=== PATIENT | female | born 1970 | race Two or more races ===

== ENCOUNTER 2020-10-28 14:15 | Inpatient (IN) | payer MEDICAID ==
[~2020-10-28] VITALS: Ht 160 cm; Wt 91.6 kg
[2020-10-28] MEDS ORDERED: CEFTRIAXONE 1 G PREMIX 50 ML IV ONE (15:45)
[2020-10-28 16:38] LABS: BASOPHILS % 0.5 % (0.0-2.0); EOSINOPHILS % 0.2 % (0.0-5.0); HEMATOCRIT. 36.3 % (36.0-48.0); HEMOGLOBIN. 11.8 g/dL (12.0-16.0); LYMPHOCYTES % 23.3 % (20.0-50.0); MEAN CORPUSCULAR HEMOGLOBIN 25.2 pg (28.0-32.0); MEAN CORPUSCULAR VOLUME 77.8 fL (81.0-99.0); MEAN PLATELET VOLUME 9.8 fl (7.4-10.4); MONOCYTES % 3.9 % (2.0-8.0); NEUTROPHILS % 72.1 % (40.0-76.0); PLATELET 192 x1000/uL (130-400); RED BLOOD CELL COUNT 4.67 mill/uL (4.2-5.4); RED CELL DISTRIBUTION WIDTH 21.2 % (11.6-14.6)
[2020-10-28 16:43] LABS: CHLORIDE 98 mEq/L (98-107)
[2020-10-28 18:21] LABS: CLARITY URINE CLOUDY (CLEAR); COLOR URINE YELLOW (YELLOW); KETONES URINE NEGATIVE (NEGATIVE); LEUKOCYTE ESTERASE URINE 1+ (NEGATIVE); NITRITE URINE NEGATIVE (NEGATIVE); OCCULT BLOOD URINE 2+ (NEGATIVE); PROTEIN URINE 2+ (NEGATIVE); SPECIFIC GRAVITY URINE 1.023 (1.005-1.030)
[2020-10-28] MEDS ORDERED: MAGNESIUM/ALUMINUM HYDROXIDE/SIMETHICONE 30ML UDC PO PRN (20:15)
[2020-10-28] MEDS ORDERED: DOCUSATE SODIUM 100MG CAPSULE PO PRN (20:15)
[2020-10-28] MEDS ORDERED: ALBUTEROL 6.7GM HFA INHALER ORI PRN (20:15)
[2020-10-28] MEDS ORDERED: NITROGLYCERIN 0.4MG TABLET SL SL PRN (20:15)
[2020-10-28] MEDS ORDERED: CLONIDINE 0.1MG TABLET PO PRN (20:15)
[2020-10-28] MEDS ORDERED: ZOLPIDEM TARTRATE 5MG TABLET PO PRN (20:15)
[2020-10-28 20:39] LABS: TOTAL IRON BINDING CAPACITY 324 ug/dL (250-450)
[2020-10-28] MEDS ORDERED: DEXAMETHASONE 4MG/ML 1ML VIAL IV ONE (20:45)
[2020-10-28 20:48] LABS: FOLIC ACID (FOLATE) SERUM >20 ng/mL ng/mL (>5.38)
[2020-10-28 20:59] LABS: VITAMIN B12 SERUM 643 pg/mL (211-911)
[2020-10-28] MEDS: GUAIFENESIN/DM 600MG/30MG ER TAB 12HR PO SCH (21:00)
[2020-10-28] MEDS: ASCORBIC ACID 500 MG TABLET PO SCH (21:00)
[2020-10-28] MEDS: ENOXAPARIN 40MG/0.4ML SYR SUBCUT SCH (21:07)
[2020-10-28] MEDS: BLOOD SUGAR DIAGNOSTIC STRIP TEST SCH (21:07)
[2020-10-28] MEDS: FAMOTIDINE 20MG TABLET PO SCH (21:08)
[2020-10-28] MEDS: INSULIN LISPRO 100 UNITS/ML SUBCUT SCH (21:08)
[2020-10-28] MEDS ORDERED: AZITHROMYCIN 500 MG in DEXT 5% WATER 250 ML IV SCH (21:30)
[2020-10-29 00:49] LABS: CREATINE KINASE 42 IU/L (26-192)
[2020-10-29 00:50] LABS: CREATINE KINASE MB FRACTION < 1.0 ng/mL (0.5-3.6)
[2020-10-29 05:40] LABS: BASOPHILS % 0.3 % (0.0-2.0); HEMOGLOBIN. 11.2 g/dL (12.0-16.0); LYMPHOCYTES % 16.9 % (20.0-50.0); MEAN CORPUSCULAR HEMOGLOBIN 24.9 pg (28.0-32.0); MEAN CORPUSCULAR VOLUME 77.9 fL (81.0-99.0); MEAN PLATELET VOLUME 9.7 fl (7.4-10.4); MONOCYTES % 2.4 % (2.0-8.0); NEUTROPHILS % 80.4 % (40.0-76.0); PLATELET 196 x1000/uL (130-400); RED BLOOD CELL COUNT 4.49 mill/uL (4.2-5.4); RED CELL DISTRIBUTION WIDTH 21.1 % (11.6-14.6)
[2020-10-29 05:53] LABS: CHLORIDE 102 mEq/L (98-107)
[2020-10-29 05:59] LABS: PHOSPHORUS 3.3 mg/dL (2.5-4.9)
[2020-10-29 06:02] LABS: CREATINE KINASE 33 IU/L (26-192)
[2020-10-29 06:05] LABS: CREATINE KINASE MB FRACTION < 1.0 ng/mL (0.5-3.6)
[2020-10-29] MEDS: BLOOD SUGAR DIAGNOSTIC STRIP TEST SCH ×4 (06:48→21:31)
[2020-10-29] MEDS: INSULIN LISPRO 100 UNITS/ML SUBCUT SCH ×4 (07:04→21:47)
[2020-10-29] MEDS ORDERED: DEXAMETHASONE 10 MG/ML VIAL IV SCH (09:45)
[2020-10-29] MEDS ORDERED: DEXAMETHASONE 4MG/ML 1ML VIAL IV NR (11:22)
[2020-10-29] MEDS: ASCORBIC ACID 500 MG TABLET PO SCH ×2 (11:34→21:43)
[2020-10-29] MEDS: GUAIFENESIN/DM 600MG/30MG ER TAB 12HR PO SCH ×2 (11:34→21:43)
[2020-10-29] MEDS: FAMOTIDINE 20MG TABLET PO SCH ×2 (11:34→21:43)
[2020-10-29] MEDS: ASPIRIN 325MG EC TABLET PO SCH (11:35)
[2020-10-29] MEDS: ZINC SULFATE 220 MG ( 50 ) CAPSULE PO SCH (11:35)
[2020-10-29 12:00] VITALS: BP 113/59
[2020-10-29] MEDS: INSULIN GLARGINE UD 100 UNITS/ML SYR SUBCUT SCH ×2 (13:39→21:45)
[2020-10-29 14:00] VITALS: BP 135/113
[2020-10-29] MEDS ORDERED: CEFTRIAXONE 1 G PREMIX 50 ML IV SCH (17:00)
[2020-10-29] MEDS ORDERED: PNEUMOCOCCAL 23-VAL P-SAC VAC 0.5 ML IM ONE (18:30)
[2020-10-29] MEDS ORDERED: LISI10TA5 MT (18:31)
[2020-10-29 20:00] VITALS: BP 124/58
[2020-10-29] MEDS: CEFTRIAXONE 1,000 MG in DEXTROSE 5% WATER 50 ML IV SCH (21:43)
[2020-10-29] MEDS: ENOXAPARIN 40MG/0.4ML SYR SUBCUT SCH (21:44)
[2020-10-29] MEDS: ACETAMINOPHEN 325MG TABLET PO PRN (22:31)
[2020-10-29] MEDS ORDERED: AZITHROMYCIN 500 MG in DEXT 5% WATER 250 ML IV NR (23:45)
[2020-10-30] VITALS: BP 128/58
[2020-10-30] MEDS: ALBUTEROL 6.7GM HFA INHALER ORI SCH ×5 (01:01→22:05)
[2020-10-30 04:00] VITALS: BP 124/58
[2020-10-30] MEDS: BLOOD SUGAR DIAGNOSTIC STRIP TEST SCH ×4 (07:30→21:00)
[2020-10-30 08:00] VITALS: BP 110/45
[2020-10-30] MEDS: ASCORBIC ACID 500 MG TABLET PO SCH ×2 (08:33→22:01)
[2020-10-30] MEDS: FAMOTIDINE 20MG TABLET PO SCH ×2 (08:33→22:00)
[2020-10-30] MEDS: GUAIFENESIN/DM 600MG/30MG ER TAB 12HR PO SCH ×2 (08:33→22:01)
[2020-10-30] MEDS: ZINC SULFATE 220 MG ( 50 ) CAPSULE PO SCH (08:33)
[2020-10-30] MEDS: ACETAMINOPHEN 325MG TABLET PO PRN ×3 (08:33→18:40)
[2020-10-30] MEDS: DEXAMETHASONE 10 MG/ML VIAL IV SCH (08:33)
[2020-10-30] MEDS: ASPIRIN 325MG EC TABLET PO SCH (08:34)
[2020-10-30] MEDS: INSULIN LISPRO 100 UNITS/ML SUBCUT SCH ×4 (08:35→22:03)
[2020-10-30] MEDS: INSULIN GLARGINE UD 100 UNITS/ML SYR SUBCUT SCH ×2 (11:44→22:04)
[2020-10-30 12:00] VITALS: BP 116/59
[2020-10-30 16:00] VITALS: BP 139/67
[2020-10-30] MEDS ORDERED: AZITHROMYCIN 500 MG in DEXT 5% WATER 250 ML IV SCH (18:00)
[2020-10-30 20:00] VITALS: BP 120/69
[2020-10-30] MEDS: CEFTRIAXONE 1,000 MG in DEXTROSE 5% WATER 50 ML IV SCH (22:00)
[2020-10-30] MEDS: ENOXAPARIN 40MG/0.4ML SYR SUBCUT SCH (22:01)
[2020-10-31 00:33] VITALS: BP 130/80
[2020-10-31] MEDS: ACETAMINOPHEN 325MG TABLET PO PRN (01:26)
[2020-10-31] MEDS: ONDANSETRON HCL 4MG/2ML INJ IV PRN ×2 (01:37→11:07)
[2020-10-31 04:00] VITALS: BP 122/56
[2020-10-31] MEDS: ALBUTEROL 6.7GM HFA INHALER ORI SCH ×4 (05:53→21:33)
[2020-10-31] MEDS: KETOROLAC 15MG/ML VIAL IV PRN ×3 (06:46→21:37)
[2020-10-31] MEDS: BLOOD SUGAR DIAGNOSTIC STRIP TEST SCH ×4 (07:01→21:38)
[2020-10-31 08:00] VITALS: BP_SYST 129
[2020-10-31] MEDS: ASCORBIC ACID 500 MG TABLET PO SCH ×2 (08:22→21:36)
[2020-10-31] MEDS: GUAIFENESIN/DM 600MG/30MG ER TAB 12HR PO SCH ×2 (08:22→22:15)
[2020-10-31] MEDS: ASPIRIN 325MG EC TABLET PO SCH (08:22)
[2020-10-31] MEDS: DEXAMETHASONE 10 MG/ML VIAL IV SCH (08:23)
[2020-10-31] MEDS: FAMOTIDINE 20MG TABLET PO SCH ×2 (08:23→21:36)
[2020-10-31] MEDS: ZINC SULFATE 220 MG ( 50 ) CAPSULE PO SCH (08:23)
[2020-10-31] MEDS: INSULIN LISPRO 100 UNITS/ML SUBCUT SCH ×4 (08:24→21:35)
[2020-10-31] MEDS: INSULIN GLARGINE UD 100 UNITS/ML SYR SUBCUT SCH ×2 (10:46→21:35)
[2020-10-31 12:00] VITALS: BP 126/55
[2020-10-31] MEDS: AZITHROMYCIN 500 MG TABLET PO SCH (18:23)
[2020-10-31 20:00] VITALS: BP 149/80
[2020-10-31] MEDS: CEFTRIAXONE 1,000 MG in DEXTROSE 5% WATER 50 ML IV SCH (21:33)
[2020-10-31] MEDS: ENOXAPARIN 40MG/0.4ML SYR SUBCUT SCH (21:34)
[2020-11-01 00:25] VITALS: BP 128/60
[2020-11-01] MEDS: ALBUTEROL 6.7GM HFA INHALER ORI SCH ×4 (04:02→20:31)
[2020-11-01] MEDS: ACETAMINOPHEN 325MG TABLET PO PRN (04:02)
[2020-11-01 04:08] VITALS: BP 111/42
[2020-11-01] MEDS: BLOOD SUGAR DIAGNOSTIC STRIP TEST SCH ×4 (06:03→21:00)
[2020-11-01] MEDS: INSULIN LISPRO 100 UNITS/ML SUBCUT SCH ×4 (06:25→22:56)
[2020-11-01 08:00] VITALS: BP 131/62
[2020-11-01] MEDS: ASPIRIN 325MG EC TABLET PO SCH (09:18)
[2020-11-01] MEDS: ZINC SULFATE 220 MG ( 50 ) CAPSULE PO SCH (09:18)
[2020-11-01] MEDS: ASCORBIC ACID 500 MG TABLET PO SCH ×2 (09:19→20:30)
[2020-11-01] MEDS: GUAIFENESIN/DM 600MG/30MG ER TAB 12HR PO SCH ×2 (09:20→20:30)
[2020-11-01] MEDS: FAMOTIDINE 20MG TABLET PO SCH ×2 (09:20→20:30)
[2020-11-01] MEDS: DEXAMETHASONE 10 MG/ML VIAL IV SCH (09:21)
[2020-11-01] MEDS: KETOROLAC 15MG/ML VIAL IV PRN (09:23)
[2020-11-01] MEDS: INSULIN GLARGINE UD 100 UNITS/ML SYR SUBCUT SCH ×2 (09:50→22:57)
[2020-11-01 12:00] VITALS: BP 114/48
[2020-11-01 16:00] VITALS: BP 118/67
[2020-11-01] MEDS: AZITHROMYCIN 500 MG TABLET PO SCH (17:40)
[2020-11-01 20:00] VITALS: BP 148/64
[2020-11-01] MEDS: CEFTRIAXONE 1,000 MG in DEXTROSE 5% WATER 50 ML IV SCH (20:30)
[2020-11-01] MEDS: ENOXAPARIN 40MG/0.4ML SYR SUBCUT SCH (20:30)
[2020-11-02] VITALS: BP 149/74
[2020-11-02 04:00] VITALS: BP 133/58
[2020-11-02] MEDS: ALBUTEROL 6.7GM HFA INHALER ORI SCH ×4 (04:47→20:57)
[2020-11-02] MEDS: ACETAMINOPHEN 325MG TABLET PO PRN ×4 (04:49→22:59)
[2020-11-02] MEDS: INSULIN LISPRO 100 UNITS/ML SUBCUT SCH ×4 (07:40→21:00)
[2020-11-02] MEDS: BLOOD SUGAR DIAGNOSTIC STRIP TEST SCH ×4 (07:48→20:58)
[2020-11-02 08:00] VITALS: BP 131/67
[2020-11-02] MEDS: KETOROLAC 15MG/ML VIAL IV PRN ×3 (08:24→23:56)
[2020-11-02] MEDS: DEXAMETHASONE 10 MG/ML VIAL IV SCH (08:26)
[2020-11-02] MEDS: ASPIRIN 325MG EC TABLET PO SCH (08:26)
[2020-11-02] MEDS: ZINC SULFATE 220 MG ( 50 ) CAPSULE PO SCH (08:26)
[2020-11-02] MEDS: GUAIFENESIN/DM 600MG/30MG ER TAB 12HR PO SCH ×2 (08:27→20:57)
[2020-11-02] MEDS: ASCORBIC ACID 500 MG TABLET PO SCH ×2 (08:28→20:57)
[2020-11-02] MEDS: FAMOTIDINE 20MG TABLET PO SCH ×2 (08:28→20:58)
[2020-11-02] MEDS: INSULIN GLARGINE UD 100 UNITS/ML SYR SUBCUT SCH ×2 (09:54→21:59)
[2020-11-02 12:00] VITALS: BP 154/76
[2020-11-02 16:00] VITALS: BP 133/77
[2020-11-02 20:00] VITALS: BP 135/75
[2020-11-02] MEDS: CEFTRIAXONE 1,000 MG in DEXTROSE 5% WATER 50 ML IV SCH (20:35)
[2020-11-02] MEDS: ENOXAPARIN 40MG/0.4ML SYR SUBCUT SCH (20:58)
[2020-11-03] VITALS: BP 129/70
[2020-11-03] MEDS: ACETAMINOPHEN 325MG TABLET PO PRN ×3 (03:14→14:53)
[2020-11-03] MEDS: ALBUTEROL 6.7GM HFA INHALER ORI SCH ×3 (03:16→14:52)
[2020-11-03 04:00] VITALS: BP 133/77
[2020-11-03] MEDS: KETOROLAC 15MG/ML VIAL IV PRN ×2 (06:06→15:50)
[2020-11-03] MEDS: BLOOD SUGAR DIAGNOSTIC STRIP TEST SCH ×4 (06:25→21:00)
[2020-11-03] MEDS: INSULIN LISPRO 100 UNITS/ML SUBCUT SCH ×4 (07:40→21:00)
[2020-11-03] MEDS: FAMOTIDINE 20MG TABLET PO SCH ×2 (09:02→22:56)
[2020-11-03] MEDS: DEXAMETHASONE 10 MG/ML VIAL IV SCH (09:03)
[2020-11-03] MEDS: GUAIFENESIN/DM 600MG/30MG ER TAB 12HR PO SCH ×2 (09:03→22:56)
[2020-11-03] MEDS: ASCORBIC ACID 500 MG TABLET PO SCH ×2 (09:03→22:56)
[2020-11-03] MEDS: ZINC SULFATE 220 MG ( 50 ) CAPSULE PO SCH (09:03)
[2020-11-03] MEDS: INSULIN GLARGINE UD 100 UNITS/ML SYR SUBCUT SCH ×2 (10:48→22:50)
[2020-11-03] MEDS ORDERED: LORAZEPAM 2MG/ML CPJ IV NR (11:00)
[2020-11-03] MEDS ORDERED: LORAZEPAM 2MG/ML CPJ IV PRN (11:00)
[2020-11-03] MEDS: ASPIRIN 325MG EC TABLET PO SCH (11:46)
[2020-11-03] MEDS ORDERED: FUROSEMIDE 40MG/4ML VIAL IVP NR (17:30)
[2020-11-03] MEDS: DILTIAZEM HCL 30MG TABLET PO SCH ×2 (18:00→23:19)
[2020-11-03 20:00] VITALS: BP 135/75
[2020-11-03] MEDS: CEFTRIAXONE 1,000 MG in DEXTROSE 5% WATER 50 ML IV SCH (22:48)
[2020-11-03] MEDS: ENOXAPARIN 40MG/0.4ML SYR SUBCUT SCH (22:55)
[2020-11-04] VITALS: BP 144/70
[2020-11-04] MEDS: ACETAMINOPHEN 325MG TABLET PO PRN ×4 (00:47→22:34)
[2020-11-04] MEDS: KETOROLAC 15MG/ML VIAL IV PRN ×2 (02:46→22:34)
[2020-11-04 04:00] VITALS: BP 142/74
[2020-11-04] MEDS: INSULIN LISPRO 100 UNITS/ML SUBCUT SCH ×4 (07:38→23:35)
[2020-11-04] MEDS: BLOOD SUGAR DIAGNOSTIC STRIP TEST SCH ×4 (07:38→21:00)
[2020-11-04] MEDS: DILTIAZEM HCL 30MG TABLET PO SCH ×3 (07:42→18:49)
[2020-11-04 07:54] LABS: BASOPHILS % 0.1 % (0.0-2.0); EOSINOPHILS % 0.9 % (0.0-5.0); HEMATOCRIT. 34.9 % (36.0-48.0); HEMOGLOBIN. 11.1 g/dL (12.0-16.0); LYMPHOCYTES % 7.6 % (20.0-50.0); MEAN CORPUSCULAR HEMOGLOBIN 24.9 pg (28.0-32.0); MEAN CORPUSCULAR VOLUME 78.2 fL (81.0-99.0); MEAN PLATELET VOLUME 9.2 fl (7.4-10.4); MONOCYTES % 1.6 % (2.0-8.0); NEUTROPHILS % 89.8 % (40.0-76.0); PLATELET 218 x1000/uL (130-400); RED BLOOD CELL COUNT 4.47 mill/uL (4.2-5.4)
[2020-11-04 08:00] VITALS: BP 92/61
[2020-11-04 08:11] LABS: CHLORIDE 98 mEq/L (98-107)
[2020-11-04] MEDS ORDERED: POTASSIUM CHLORIDE 20MEQ/PACKET PO SCH (09:00)
[2020-11-04 10:08] LABS: BG BASE EXCESS 0.6 mmol/L (-2.0-2.0); BG CARBOXYHEMOGLOBIN 0.3 % (0.5-1.5); BG DEOXYHEMOGLOBIN 2.6 % (0.0-5.0); BG HCO3 ACT 23.7 mmol/L (22.0-26.0); BG METHEMOGLOBIN 0.2 % (0.0-1.5); BG OXYGEN SATURATION 97.4 % (92.0-98.5); BG OXYHEMOGLOBIN 96.9 % (94.0-97.0); BG PCO2 33.1 mmHg (35.0-45.0); BG PH 7.472 (7.350-7.450); BG PO2 97.6 mmHg (75.0-100.0); BG SAMPLE SITE RIGHT RADIAL; BG TOTAL HEMOGLOBIN 12.6 g/dL (12.0-18.0); BG VENT MODE MASK - BIPAP
[2020-11-04] MEDS: AZITHROMYCIN 500 MG in DEXT 5% WATER 250 ML IV SCH (11:18)
[2020-11-04] MEDS: ZINC SULFATE 220 MG ( 50 ) CAPSULE PO SCH (11:19)
[2020-11-04] MEDS: GUAIFENESIN/DM 600MG/30MG ER TAB 12HR PO SCH ×2 (11:19→21:00)
[2020-11-04] MEDS: FAMOTIDINE 20MG TABLET PO SCH ×2 (11:19→22:34)
[2020-11-04] MEDS: DEXAMETHASONE 10 MG/ML VIAL IV SCH (11:20)
[2020-11-04] MEDS: ASCORBIC ACID 500 MG TABLET PO SCH ×2 (11:20→22:34)
[2020-11-04] MEDS: INSULIN GLARGINE UD 100 UNITS/ML SYR SUBCUT SCH ×2 (11:23→22:55)
[2020-11-04] MEDS: ASPIRIN 325MG EC TABLET PO SCH (11:33)
[2020-11-04 12:00] VITALS: BP 92/61
[2020-11-04] MEDS: FUROSEMIDE 20MG/2ML VIAL IVP SCH (13:00)
[2020-11-04 16:00] VITALS: BP 92/61
[2020-11-04 20:00] VITALS: BP 115/60
[2020-11-04] MEDS ORDERED: CEFTRIAXONE 1 G PREMIX 50 ML IV SCH (22:00)
[2020-11-04] MEDS: ENOXAPARIN 40MG/0.4ML SYR SUBCUT SCH (22:35)
[2020-11-04] MEDS: CEFTRIAXONE 1,000 MG in DEXTROSE 5% WATER 50 ML IV SCH (23:15)
[2020-11-05] VITALS: BP 118/50
[2020-11-05] MEDS: MORPHINE SULFATE 2 MG/ML CPJ (NOT FOR IM USE) IV PRN ×2 (01:29→23:01)
[2020-11-05 04:00] VITALS: BP 123/63
[2020-11-05] MEDS: GUAIFENESIN 200MG/10ML SUGAR FREE UDC PO PRN (04:15)
[2020-11-05] MEDS: BLOOD SUGAR DIAGNOSTIC STRIP TEST SCH ×4 (06:33→21:16)
[2020-11-05] MEDS: ACETAMINOPHEN 325MG TABLET PO PRN ×3 (06:39→19:28)
[2020-11-05] MEDS: DILTIAZEM HCL 30MG TABLET PO SCH ×4 (06:40→17:33)
[2020-11-05] MEDS: INSULIN LISPRO 100 UNITS/ML SUBCUT SCH ×4 (07:28→21:44)
[2020-11-05 08:00] VITALS: BP 132/53
[2020-11-05] MEDS: GUAIFENESIN/DM 600MG/30MG ER TAB 12HR PO SCH ×2 (09:00→21:00)
[2020-11-05] MEDS: ZINC SULFATE 220 MG ( 50 ) CAPSULE PO SCH (09:08)
[2020-11-05] MEDS: ASCORBIC ACID 500 MG TABLET PO SCH ×2 (09:08→21:16)
[2020-11-05] MEDS: FAMOTIDINE 20MG TABLET PO SCH ×2 (09:08→21:16)
[2020-11-05] MEDS: PHENAZOPYRIDINE HCL 100MG TABLET PO SCH ×3 (09:08→17:33)
[2020-11-05] MEDS: AZITHROMYCIN 500 MG in DEXT 5% WATER 250 ML IV SCH (09:08)
[2020-11-05] MEDS: ASPIRIN 325MG EC TABLET PO SCH (09:09)
[2020-11-05] MEDS: FUROSEMIDE 20MG/2ML VIAL IVP SCH (09:09)
[2020-11-05] MEDS: DEXAMETHASONE 10 MG/ML VIAL IV SCH (09:11)
[2020-11-05] MEDS: ALBUTEROL 6.7GM HFA INHALER ORI SCH ×3 (09:12→22:29)
[2020-11-05 12:00] VITALS: BP 107/46
[2020-11-05] MEDS: INSULIN GLARGINE UD 100 UNITS/ML SYR SUBCUT SCH ×2 (12:37→22:44)
[2020-11-05 16:00] VITALS: BP 112/49
[2020-11-05 20:00] VITALS: BP 119/69
[2020-11-05] MEDS: ENOXAPARIN 40MG/0.4ML SYR SUBCUT SCH (21:16)
[2020-11-05] MEDS: CEFTRIAXONE 1,000 MG in DEXTROSE 5% WATER 50 ML IV SCH (22:27)
[2020-11-06] VITALS (32 sets, daily range): BP systolic 94–186; BP diastolic 48–91
[2020-11-06] MEDS: ACETAMINOPHEN 325MG TABLET PO PRN (01:53)
[2020-11-06] MEDS: ALBUTEROL 6.7GM HFA INHALER ORI SCH (03:12)
[2020-11-06] MEDS: GUAIFENESIN 200MG/10ML SUGAR FREE UDC PO PRN (03:15)
[2020-11-06] MEDS: MORPHINE SULFATE 2 MG/ML CPJ (NOT FOR IM USE) IV PRN (04:54)
[2020-11-06] MEDS: DILTIAZEM HCL 30MG TABLET PO SCH ×5 (06:00→23:13)
[2020-11-06] MEDS: BLOOD SUGAR DIAGNOSTIC STRIP TEST SCH ×4 (06:24→21:52)
[2020-11-06] MEDS: INSULIN LISPRO 100 UNITS/ML SUBCUT SCH ×4 (07:07→21:00)
[2020-11-06] MEDS: GUAIFENESIN/DM 600MG/30MG ER TAB 12HR PO SCH ×2 (09:00→21:14)
[2020-11-06] MEDS: DEXAMETHASONE 10 MG/ML VIAL IV SCH (09:00)
[2020-11-06] MEDS: AZITHROMYCIN 500 MG in DEXT 5% WATER 250 ML IV SCH (11:24)
[2020-11-06] MEDS: ZINC SULFATE 220 MG ( 50 ) CAPSULE PO SCH (11:24)
[2020-11-06] MEDS: FAMOTIDINE 20MG TABLET PO SCH ×2 (11:24→21:14)
[2020-11-06] MEDS: ASCORBIC ACID 500 MG TABLET PO SCH ×2 (11:24→21:13)
[2020-11-06] MEDS: FUROSEMIDE 20MG/2ML VIAL IVP SCH (11:24)
[2020-11-06] MEDS: ASPIRIN 325MG EC TABLET PO SCH (11:24)
[2020-11-06] MEDS: INSULIN GLARGINE UD 100 UNITS/ML SYR SUBCUT SCH ×2 (12:03→22:11)
[2020-11-06] MEDS ORDERED: DILTIAZEM HCL 5MG/ML 5ML VIAL IV NR (14:09)
[2020-11-06] MEDS ORDERED: LORAZEPAM 2MG/ML CPJ ONE (15:46)
[2020-11-06] MEDS ORDERED: DIGOXIN 500MCG/2ML AMP IV SCH (16:00)
[2020-11-06] MEDS ORDERED: FENTANYL CITRATE/PF 1,000 MCG in SODIUM CHLORIDE 0.9% 80 ML IV PRN (16:00)
[2020-11-06] MEDS: PROPOFOL 10MG/ML 100ML 100 ML IV PRN ×2 (17:06→21:13)
[2020-11-06 17:31] LABS: HEMATOCRIT. 38.4 % (36.0-48.0); MEAN CORPUSCULAR HEMOGLOBIN 24.9 pg (28.0-32.0); MEAN CORPUSCULAR VOLUME 79.6 fL (81.0-99.0); MEAN PLATELET VOLUME 8.9 fl (7.4-10.4); PLATELET 257 x1000/uL (130-400); RED BLOOD CELL COUNT 4.82 mill/uL (4.2-5.4); RED CELL DISTRIBUTION WIDTH 21.3 % (11.6-14.6)
[2020-11-06 17:39] LABS: CHLORIDE 96 mEq/L (98-107)
[2020-11-06 17:47] LABS: CREATINE KINASE 46 IU/L (26-192)
[2020-11-06 17:50] LABS: CREATINE KINASE MB FRACTION < 1.0 ng/mL (0.5-3.6)
[2020-11-06 18:11] LABS: BG BASE EXCESS -2.1 mmol/L (-2.0-2.0); BG CARBOXYHEMOGLOBIN 0.8 % (0.5-1.5); BG HCO3 ACT 24.3 mmol/L (22.0-26.0); BG METHEMOGLOBIN 0.3 % (0.0-1.5); BG OXYGEN SATURATION 65.6 % (92.0-98.5); BG OXYHEMOGLOBIN 64.9 % (94.0-97.0); BG PCO2 48.4 mmHg (35.0-45.0); BG PH 7.319 (7.350-7.450); BG PO2 40.5 mmHg (75.0-100.0); BG SAMPLE SITE RIGHT RADIAL; BG VENT MODE VENT- PRVC
[2020-11-06] MEDS: FENTANYL CITRATE 2,500 MCG in SODIUM CHLORIDE 0.9% 200 ML IV PRN (18:50)
[2020-11-06 20:22] LABS: BG BASE EXCESS 1.6 mmol/L (-2.0-2.0); BG CARBOXYHEMOGLOBIN 0.9 % (0.5-1.5); BG DEOXYHEMOGLOBIN 3.1 % (0.0-5.0); BG FRACTION INSPIRED OXYGEN 100; BG HCO3 ACT 27.1 mmol/L (22.0-26.0); BG OXYGEN SATURATION 96.9 % (92.0-98.5); BG PCO2 46.3 mmHg (35.0-45.0); BG PH 7.385 (7.350-7.450); BG PO2 96.3 mmHg (75.0-100.0); BG SAMPLE SITE RIGHT RADIAL; BG TOTAL HEMOGLOBIN 12.1 g/dL (12.0-18.0); BG VENT MODE VENT - AC
[2020-11-06] MEDS: ENOXAPARIN 40MG/0.4ML SYR SUBCUT SCH (21:13)
[2020-11-06 21:23] LABS: PLATELET ESTIMATE NORMAL
[2020-11-06] MEDS: CEFTRIAXONE 1,000 MG in DEXTROSE 5% WATER 50 ML IV SCH (23:13)
[2020-11-07] VITALS (68 sets, daily range): BP systolic 96–192; BP diastolic 43–85
[2020-11-07] MEDS: IPRATROPIUM/ALBUTEROL 0.5-3(2.5)MG/3ML NEB HHN SCH ×4 (01:22→21:18)
[2020-11-07] MEDS: PROPOFOL 10MG/ML 100ML 100 ML IV PRN ×5 (02:26→21:01)
[2020-11-07] MEDS: DILTIAZEM HCL 30MG TABLET PO SCH ×4 (05:34→23:19)
[2020-11-07] MEDS: BLOOD SUGAR DIAGNOSTIC STRIP TEST SCH ×4 (07:50→20:35)
[2020-11-07] MEDS: INSULIN LISPRO 100 UNITS/ML SUBCUT SCH ×4 (08:20→21:07)
[2020-11-07] MEDS: GUAIFENESIN/DM 600MG/30MG ER TAB 12HR PO SCH ×2 (09:00→20:35)
[2020-11-07] MEDS: ASCORBIC ACID 500 MG TABLET PO SCH ×2 (09:12→20:34)
[2020-11-07] MEDS: ASPIRIN 325MG EC TABLET PO SCH (09:12)
[2020-11-07] MEDS: FAMOTIDINE 20MG TABLET PO SCH ×2 (09:12→20:34)
[2020-11-07] MEDS: ACETAMINOPHEN 325MG TABLET PO PRN (09:12)
[2020-11-07] MEDS: ZINC SULFATE 220 MG ( 50 ) CAPSULE PO SCH (09:12)
[2020-11-07] MEDS: FUROSEMIDE 20MG/2ML VIAL IVP SCH (09:13)
[2020-11-07] MEDS: DEXAMETHASONE 10 MG/ML VIAL IV SCH (09:13)
[2020-11-07] MEDS: AZITHROMYCIN 500 MG in DEXT 5% WATER 250 ML IV SCH (10:24)
[2020-11-07] MEDS: INSULIN GLARGINE UD 100 UNITS/ML SYR SUBCUT SCH ×2 (10:25→22:10)
[2020-11-07 11:38] LABS: BG BASE EXCESS 1.2 mmol/L (-2.0-2.0); BG CARBOXYHEMOGLOBIN 1.1 % (0.5-1.5); BG DEOXYHEMOGLOBIN 12.2 % (0.0-5.0); BG FRACTION INSPIRED OXYGEN 100; BG HCO3 ACT 27.2 mmol/L (22.0-26.0); BG METHEMOGLOBIN 0.1 % (0.0-1.5); BG OXYGEN SATURATION 87.7 % (92.0-98.5); BG OXYHEMOGLOBIN 86.6 % (94.0-97.0); BG PCO2 49.2 mmHg (35.0-45.0); BG PH 7.361 (7.350-7.450); BG PO2 58.8 mmHg (75.0-100.0); BG SAMPLE SITE RIGHT RADIAL; BG TOTAL HEMOGLOBIN 11.6 g/dL (12.0-18.0); BG TOTAL RESPIRATORY RATE 22 b/min; BG VENT MODE VENT- PRVC
[2020-11-07] MEDS: FENTANYL CITRATE 2,500 MCG in SODIUM CHLORIDE 0.9% 200 ML IV PRN ×2 (12:50→21:37)
[2020-11-07 17:33] LABS: BG BASE EXCESS -2.2 mmol/L (-2.0-2.0); BG CARBOXYHEMOGLOBIN 0.8 % (0.5-1.5); BG DEOXYHEMOGLOBIN 5.7 % (0.0-5.0); BG METHEMOGLOBIN 0.1 % (0.0-1.5); BG OXYGEN SATURATION 94.2 % (92.0-98.5); BG OXYHEMOGLOBIN 93.4 % (94.0-97.0); BG PCO2 41.2 mmHg (35.0-45.0); BG PH 7.365 (7.350-7.450); BG PO2 78.6 mmHg (75.0-100.0); BG SAMPLE SITE RIGHT BRACHIAL; BG TOTAL HEMOGLOBIN 12.6 g/dL (12.0-18.0); BG VENT MODE VENT- PRVC
[2020-11-07] MEDS: GUAIFENESIN 200MG/10ML SUGAR FREE UDC PO PRN (20:34)
[2020-11-07] MEDS: ENOXAPARIN 40MG/0.4ML SYR SUBCUT SCH (22:07)
[2020-11-07] MEDS: CEFTRIAXONE 1,000 MG in DEXTROSE 5% WATER 50 ML IV SCH (22:08)
[2020-11-08] VITALS (78 sets, daily range): BP systolic 89–137; BP diastolic 37–92
[2020-11-08] MEDS: PROPOFOL 10MG/ML 100ML 100 ML IV PRN ×2 (03:32→09:16)
[2020-11-08] MEDS: IPRATROPIUM/ALBUTEROL 0.5-3(2.5)MG/3ML NEB HHN SCH ×4 (03:49→20:30)
[2020-11-08] MEDS: DILTIAZEM HCL 30MG TABLET PO SCH ×4 (05:14→23:09)
[2020-11-08 05:53] LABS: HEMATOCRIT. 29.6 % (36.0-48.0); HEMOGLOBIN. 9.5 g/dL (12.0-16.0); MEAN CORPUSCULAR HEMOGLOBIN 25.1 pg (28.0-32.0); MEAN PLATELET VOLUME 9.7 fl (7.4-10.4); PLATELET 181 x1000/uL (130-400)
[2020-11-08 07:54] LABS: BG BASE EXCESS 0.5 mmol/L (-2.0-2.0); BG CARBOXYHEMOGLOBIN 0.3 % (0.5-1.5); BG DEOXYHEMOGLOBIN 1.7 % (0.0-5.0); BG FRACTION INSPIRED OXYGEN 100; BG HCO3 ACT 25.3 mmol/L (22.0-26.0); BG METHEMOGLOBIN 0.3 % (0.0-1.5); BG OXYGEN SATURATION 98.3 % (92.0-98.5); BG OXYHEMOGLOBIN 97.7 % (94.0-97.0); BG PCO2 41.5 mmHg (35.0-45.0); BG PH 7.403 (7.350-7.450); BG PO2 130.2 mmHg (75.0-100.0); BG SAMPLE SITE RIGHT RADIAL; BG TOTAL HEMOGLOBIN 10.6 g/dL (12.0-18.0); BG VENT MODE PRVC
[2020-11-08] MEDS: BLOOD SUGAR DIAGNOSTIC STRIP TEST SCH ×4 (08:21→21:00)
[2020-11-08] MEDS: AZITHROMYCIN 500 MG in DEXT 5% WATER 250 ML IV SCH (09:07)
[2020-11-08] MEDS: ASCORBIC ACID 500 MG TABLET PO SCH ×2 (09:07→21:28)
[2020-11-08] MEDS: FAMOTIDINE 20MG TABLET PO SCH ×2 (09:07→21:29)
[2020-11-08] MEDS: ASPIRIN 325MG EC TABLET PO SCH (09:07)
[2020-11-08] MEDS: FUROSEMIDE 20MG/2ML VIAL IVP SCH (09:07)
[2020-11-08] MEDS: ZINC SULFATE 220 MG ( 50 ) CAPSULE PO SCH (09:07)
[2020-11-08] MEDS: GUAIFENESIN/DM 600MG/30MG ER TAB 12HR PO SCH ×2 (09:07→21:28)
[2020-11-08] MEDS: INSULIN LISPRO 100 UNITS/ML SUBCUT SCH ×4 (09:08→22:53)
[2020-11-08] MEDS: INSULIN GLARGINE UD 100 UNITS/ML SYR SUBCUT SCH ×2 (09:18→22:51)
[2020-11-08] MEDS: FENTANYL CITRATE 2,500 MCG in SODIUM CHLORIDE 0.9% 200 ML IV PRN ×2 (09:54→21:52)
[2020-11-08] MEDS ORDERED: MIDAZOLAM HCL 100 MG in DEXT 5% WATER 80 ML IV PRN (11:15)
[2020-11-08 13:53] LABS: PLATELET ESTIMATE NORMAL
[2020-11-08] MEDS: IPRATROPIUM/ALBUTEROL 0.5-3(2.5)MG/3ML NEB HHN PRN (15:53)
[2020-11-08] MEDS: ENOXAPARIN 40MG/0.4ML SYR SUBCUT SCH (21:33)
[2020-11-08] MEDS: CEFTRIAXONE 1,000 MG in DEXTROSE 5% WATER 50 ML IV SCH (22:44)
[2020-11-09] VITALS (51 sets, daily range): BP systolic 91–150; BP diastolic 53–91
[2020-11-09] MEDS: MIDAZOLAM HCL 100 MG in SODIUM CHLORIDE 0.9% 80 ML IV PRN ×2 (00:09→12:30)
[2020-11-09] MEDS: IPRATROPIUM/ALBUTEROL 0.5-3(2.5)MG/3ML NEB HHN SCH ×5 (00:22→20:15)
[2020-11-09] MEDS: DILTIAZEM HCL 30MG TABLET PO SCH ×3 (05:40→19:02)
[2020-11-09] MEDS: BLOOD SUGAR DIAGNOSTIC STRIP TEST SCH ×4 (07:50→21:35)
[2020-11-09] MEDS: FENTANYL CITRATE 2,500 MCG in SODIUM CHLORIDE 0.9% 200 ML IV PRN ×2 (08:55→17:29)
[2020-11-09] MEDS: FUROSEMIDE 20MG/2ML VIAL IVP SCH (09:12)
[2020-11-09] MEDS: FAMOTIDINE 20MG TABLET PO SCH ×2 (09:12→21:34)
[2020-11-09] MEDS: ASPIRIN 325MG EC TABLET PO SCH (09:12)
[2020-11-09] MEDS: ZINC SULFATE 220 MG ( 50 ) CAPSULE PO SCH (09:13)
[2020-11-09] MEDS: ASCORBIC ACID 500 MG TABLET PO SCH ×2 (09:13→21:34)
[2020-11-09] MEDS: GUAIFENESIN/DM 600MG/30MG ER TAB 12HR PO SCH ×2 (09:13→21:34)
[2020-11-09] MEDS: INSULIN GLARGINE UD 100 UNITS/ML SYR SUBCUT SCH ×2 (09:13→21:46)
[2020-11-09] MEDS: INSULIN LISPRO 100 UNITS/ML SUBCUT SCH ×4 (09:14→21:43)
[2020-11-09] MEDS: ACETAMINOPHEN 325MG TABLET PO PRN ×3 (09:27→22:51)
[2020-11-09] MEDS: MIDAZOLAM HCL 100 MG in DEXT 5% WATER 80 ML IV PRN (21:33)
[2020-11-09] MEDS: ENOXAPARIN 40MG/0.4ML SYR SUBCUT SCH (21:34)
[2020-11-09] MEDS ORDERED: DILTIAZEM HCL 5MG/ML 5ML VIAL IV ONE (22:30)
[2020-11-09] MEDS ORDERED: DILTIAZEM HCL 5MG/ML 5ML VIAL IV NR (22:30)
[2020-11-09] MEDS ORDERED: SODIUM CHLORIDE 0.45% 250 ML IV ONE (23:00)
[2020-11-09 23:24] LABS: BG BASE EXCESS 10.2 mmol/L (-2.0-2.0); BG CARBOXYHEMOGLOBIN 0.3 % (0.5-1.5); BG DEOXYHEMOGLOBIN 8.1 % (0.0-5.0); BG FRACTION INSPIRED OXYGEN 100; BG OXYGEN SATURATION 91.9 % (92.0-98.5); BG OXYHEMOGLOBIN 91.6 % (94.0-97.0); BG PCO2 65.1 mmHg (35.0-45.0); BG PH 7.373 (7.350-7.450); BG PO2 67.8 mmHg (75.0-100.0); BG SAMPLE SITE RIGHT BRACHIAL; BG TOTAL HEMOGLOBIN 9.1 g/dL (12.0-18.0)
[2020-11-10] VITALS (83 sets, daily range): BP systolic 96–154; BP diastolic 56–99
[2020-11-10] MEDS ORDERED: DILTIAZEM HCL 30MG TABLET NG SCH ×2
[2020-11-10] MEDS ORDERED: AMIODARONE HCL 150 MG in DEXT 5% WATER 97 ML IV NR (02:00)
[2020-11-10] MEDS: AMIODARONE HCL 900 MG in DEXT 5% WATER 482 ML IV PRN (02:20)
[2020-11-10] MEDS: DILTIAZEM HCL 60MG TABLET NG SCH ×4 (05:11→17:33)
[2020-11-10] MEDS: ACETAMINOPHEN 325MG TABLET PO PRN ×2 (06:07→13:10)
[2020-11-10] MEDS: DILTIAZEM HCL 5MG/ML 5ML VIAL IV PRN (06:47)
[2020-11-10] MEDS: IPRATROPIUM/ALBUTEROL 0.5-3(2.5)MG/3ML NEB HHN SCH ×2 (08:29→20:32)
[2020-11-10] MEDS: BLOOD SUGAR DIAGNOSTIC STRIP TEST SCH ×4 (08:32→21:00)
[2020-11-10 09:23] LABS: BG CARBOXYHEMOGLOBIN 0.3 % (0.5-1.5); BG DEOXYHEMOGLOBIN 3.3 % (0.0-5.0); BG FRACTION INSPIRED OXYGEN 100; BG HCO3 ACT 40.1 mmol/L (22.0-26.0); BG METHEMOGLOBIN 0.3 % (0.0-1.5); BG OXYGEN SATURATION 96.7 % (92.0-98.5); BG OXYHEMOGLOBIN 96.1 % (94.0-97.0); BG PCO2 92.2 mmHg (35.0-45.0); BG PH 7.256 (7.350-7.450); BG PO2 98.2 mmHg (75.0-100.0); BG SAMPLE SITE RIGHT RADIAL; BG TOTAL HEMOGLOBIN 11.1 g/dL (12.0-18.0); BG TOTAL RESPIRATORY RATE 26 b/min; BG VENT MODE VENT - AC/PRVC
[2020-11-10] MEDS: FUROSEMIDE 20MG/2ML VIAL IVP SCH (10:19)
[2020-11-10] MEDS: ASCORBIC ACID 500 MG TABLET PO SCH ×2 (10:19→23:13)
[2020-11-10] MEDS: ZINC SULFATE 220 MG ( 50 ) CAPSULE PO SCH (10:19)
[2020-11-10] MEDS: ASPIRIN 325MG EC TABLET PO SCH (10:19)
[2020-11-10] MEDS: FAMOTIDINE 20MG TABLET PO SCH ×2 (10:19→23:13)
[2020-11-10] MEDS: INSULIN LISPRO 100 UNITS/ML SUBCUT SCH ×4 (10:21→21:00)
[2020-11-10] MEDS: INSULIN GLARGINE UD 100 UNITS/ML SYR SUBCUT SCH ×2 (10:21→23:15)
[2020-11-10] MEDS: GUAIFENESIN/DM 600MG/30MG ER TAB 12HR PO SCH ×2 (10:22→23:13)
[2020-11-10 12:14] LABS: BG CARBOXYHEMOGLOBIN 0.3 % (0.5-1.5); BG DEOXYHEMOGLOBIN 1.1 % (0.0-5.0); BG FRACTION INSPIRED OXYGEN 100; BG HCO3 ACT 33.6 mmol/L (22.0-26.0); BG METHEMOGLOBIN 0.2 % (0.0-1.5); BG OXYGEN SATURATION 98.9 % (92.0-98.5); BG OXYHEMOGLOBIN 98.4 % (94.0-97.0); BG PCO2 59.5 mmHg (35.0-45.0); BG PO2 154.2 mmHg (75.0-100.0); BG SAMPLE SITE RIGHT RADIAL; BG TOTAL HEMOGLOBIN 10.4 g/dL (12.0-18.0); BG VENT MODE VENT - AC/PRVC
[2020-11-10] MEDS: IPRATROPIUM/ALBUTEROL 0.5-3(2.5)MG/3ML NEB HHN PRN ×2 (12:29→15:28)
[2020-11-10] MEDS: FENTANYL CITRATE 2,500 MCG in SODIUM CHLORIDE 0.9% 200 ML IV PRN (15:12)
[2020-11-10] MEDS: MIDAZOLAM HCL 100 MG in DEXT 5% WATER 80 ML IV PRN (18:25)
[2020-11-10] MEDS: ENOXAPARIN 40MG/0.4ML SYR SUBCUT SCH (23:14)
[2020-11-11] VITALS (61 sets, daily range): BP systolic 101–131; BP diastolic 62–86
[2020-11-11] MEDS: ACETAMINOPHEN 325MG TABLET PO PRN ×5 (00:26→23:00)
[2020-11-11] MEDS: DILTIAZEM HCL 60MG TABLET NG SCH ×2 (00:26→06:32)
[2020-11-11] MEDS: IPRATROPIUM/ALBUTEROL 0.5-3(2.5)MG/3ML NEB HHN SCH ×5 (04:09→20:18)
[2020-11-11 06:04] LABS: HEMOGLOBIN. 8.8 g/dL (12.0-16.0); MEAN CORPUSCULAR HEMOGLOBIN 24.5 pg (28.0-32.0); MEAN CORPUSCULAR VOLUME 80.4 fL (81.0-99.0); MEAN PLATELET VOLUME 9.6 fl (7.4-10.4); PLATELET 325 x1000/uL (130-400); RED BLOOD CELL COUNT 3.61 mill/uL (4.2-5.4); RED CELL DISTRIBUTION WIDTH 20.8 % (11.6-14.6)
[2020-11-11 06:28] LABS: CHLORIDE 103 mEq/L (98-107)
[2020-11-11] MEDS: DILTIAZEM HCL 5MG/ML 5ML VIAL IV PRN (06:31)
[2020-11-11] MEDS: MIDAZOLAM HCL 100 MG in DEXT 5% WATER 80 ML IV PRN ×2 (07:12→15:43)
[2020-11-11] MEDS: INSULIN LISPRO 100 UNITS/ML SUBCUT SCH ×4 (08:21→21:00)
[2020-11-11] MEDS: ZINC SULFATE 220 MG ( 50 ) CAPSULE PO SCH (08:22)
[2020-11-11] MEDS: FAMOTIDINE 20MG TABLET PO SCH ×2 (08:22→21:41)
[2020-11-11] MEDS: ASCORBIC ACID 500 MG TABLET PO SCH ×2 (08:22→21:41)
[2020-11-11] MEDS: FUROSEMIDE 20MG/2ML VIAL IVP SCH (08:22)
[2020-11-11] MEDS: GUAIFENESIN/DM 600MG/30MG ER TAB 12HR PO SCH ×2 (08:22→21:41)
[2020-11-11] MEDS: BLOOD SUGAR DIAGNOSTIC STRIP TEST SCH ×4 (08:23→21:00)
[2020-11-11] MEDS: ASPIRIN 325MG EC TABLET PO SCH (09:46)
[2020-11-11] MEDS: INSULIN GLARGINE UD 100 UNITS/ML SYR SUBCUT SCH ×2 (09:57→22:00)
[2020-11-11] MEDS: DILTIAZEM HCL 30MG TABLET NG SCH ×2 (12:34→17:40)
[2020-11-11 13:02] LABS: BG BASE EXCESS 7.2 mmol/L (-2.0-2.0); BG CARBOXYHEMOGLOBIN 0.3 % (0.5-1.5); BG DEOXYHEMOGLOBIN 1.1 % (0.0-5.0); BG FRACTION INSPIRED OXYGEN 100; BG METHEMOGLOBIN 0.1 % (0.0-1.5); BG OXYGEN SATURATION 98.9 % (92.0-98.5); BG OXYHEMOGLOBIN 98.5 % (94.0-97.0); BG PH 7.497 (7.350-7.450); BG PO2 138.6 mmHg (75.0-100.0); BG SAMPLE SITE RIGHT RADIAL; BG TOTAL RESPIRATORY RATE 31 b/min; BG VENT MODE VENT - AC/PRVC
[2020-11-11] MEDS ORDERED: LIDOCAINE HCL 1% 20ML VIAL (Pyxis) INJ ONE (14:31)
[2020-11-11] MEDS ORDERED: SODIUM BICARBONATE 4% (2.4MEQ) 5ML VIAL IV ONE (14:31)
[2020-11-11 14:54] LABS: PLATELET ESTIMATE NORMAL
[2020-11-11] MEDS: FENTANYL CITRATE 2,500 MCG in SODIUM CHLORIDE 0.9% 200 ML IV PRN (15:42)
[2020-11-11] MEDS: ENOXAPARIN 40MG/0.4ML SYR SUBCUT SCH (21:42)
[2020-11-12] VITALS (46 sets, daily range): BP systolic 87–137; BP diastolic 29–90
[2020-11-12] MEDS: DILTIAZEM HCL 5MG/ML 5ML VIAL IV PRN (01:06)
[2020-11-12] MEDS: IPRATROPIUM/ALBUTEROL 0.5-3(2.5)MG/3ML NEB HHN SCH ×4 (01:27→21:35)
[2020-11-12] MEDS: MIDAZOLAM HCL 100 MG in DEXT 5% WATER 80 ML IV PRN ×3 (02:28→18:51)
[2020-11-12] MEDS: AMIODARONE HCL 900 MG in DEXT 5% WATER 482 ML IV PRN (02:55)
[2020-11-12 05:31] LABS: HEMOGLOBIN. 8.8 g/dL (12.0-16.0); MEAN CORPUSCULAR HEMOGLOBIN 24.6 pg (28.0-32.0); MEAN CORPUSCULAR VOLUME 80.7 fL (81.0-99.0); MEAN PLATELET VOLUME 10.2 fl (7.4-10.4); PLATELET 368 x1000/uL (130-400); RED BLOOD CELL COUNT 3.59 mill/uL (4.2-5.4); RED CELL DISTRIBUTION WIDTH 20.9 % (11.6-14.6)
[2020-11-12] MEDS: DILTIAZEM HCL 30MG TABLET NG SCH ×5 (05:31→23:27)
[2020-11-12 05:44] LABS: CHLORIDE 102 mEq/L (98-107)
[2020-11-12] MEDS: BLOOD SUGAR DIAGNOSTIC STRIP TEST SCH ×4 (07:50→21:00)
[2020-11-12] MEDS: INSULIN LISPRO 100 UNITS/ML SUBCUT SCH ×4 (08:20→21:00)
[2020-11-12] MEDS ORDERED: ASPIRIN 325MG EC TABLET PO SCH (09:00)
[2020-11-12 09:50] LABS: BG BASE EXCESS 4.7 mmol/L (-2.0-2.0); BG CARBOXYHEMOGLOBIN 0.3 % (0.5-1.5); BG DEOXYHEMOGLOBIN 3.7 % (0.0-5.0); BG FRACTION INSPIRED OXYGEN 90; BG HCO3 ACT 29.4 mmol/L (22.0-26.0); BG METHEMOGLOBIN 0.3 % (0.0-1.5); BG OXYGEN SATURATION 96.3 % (92.0-98.5); BG OXYHEMOGLOBIN 95.7 % (94.0-97.0); BG PCO2 44.8 mmHg (35.0-45.0); BG PH 7.435 (7.350-7.450); BG PO2 90.6 mmHg (75.0-100.0); BG SAMPLE SITE RIGHT RADIAL; BG TOTAL HEMOGLOBIN 7.2 g/dL (12.0-18.0); BG TOTAL RESPIRATORY RATE 31 b/min; BG VENT MODE VENT - AC/PRVC
[2020-11-12] MEDS: FENTANYL CITRATE/PF 2,500 MCG in SODIUM CHLORIDE 0.9% 200 ML IV PRN (09:54)
[2020-11-12] MEDS: ASPIRIN 81MG TABLET PO SCH (11:38)
[2020-11-12] MEDS: GUAIFENESIN/DM 600MG/30MG ER TAB 12HR PO SCH ×2 (11:38→22:30)
[2020-11-12] MEDS: ZINC SULFATE 220 MG ( 50 ) CAPSULE PO SCH (11:38)
[2020-11-12] MEDS: ASCORBIC ACID 500 MG TABLET PO SCH ×2 (11:39→22:31)
[2020-11-12] MEDS: FAMOTIDINE 20MG TABLET PO SCH ×2 (11:39→22:31)
[2020-11-12] MEDS: INSULIN GLARGINE UD 100 UNITS/ML SYR SUBCUT SCH ×2 (11:40→22:24)
[2020-11-12] MEDS ORDERED: VANCOMYCIN 1500MG in DEXTROSE 5% WATER 250ML IV NR (13:00)
[2020-11-12 13:36] LABS: CLARITY URINE CLOUDY (CLEAR); COLOR URINE YELLOW (YELLOW); KETONES URINE NEGATIVE (NEGATIVE); LEUKOCYTE ESTERASE URINE 1+ (NEGATIVE); NITRITE URINE NEGATIVE (NEGATIVE); OCCULT BLOOD URINE 2+ (NEGATIVE); PH URINE 5.5 (4.5-8.0); PROTEIN URINE 1+ (NEGATIVE); SPECIFIC GRAVITY URINE 1.023 (1.005-1.030)
[2020-11-12] MEDS ORDERED: PIPERACILLIN/TAZOBACTAM 3.375 G/VIAL IV SCH (14:00)
[2020-11-12] MEDS: PIPERACILLIN/TAZOBACTAM 3.375 G in DEXT 5% WATER 100 ML IV SCH ×3 (14:20→23:27)
[2020-11-12 15:39] LABS: PLATELET ESTIMATE NORMAL
[2020-11-12] MEDS: ACETAMINOPHEN 325MG TABLET PO PRN (18:52)
[2020-11-12] MEDS: VANCOMYCIN 750 MG PREMIX 150 ML IV SCH (22:30)
[2020-11-12] MEDS: ENOXAPARIN 40MG/0.4ML SYR SUBCUT SCH (22:30)
[2020-11-13] VITALS (54 sets, daily range): BP systolic 65–148; BP diastolic 24–86
[2020-11-13] MEDS: IPRATROPIUM/ALBUTEROL 0.5-3(2.5)MG/3ML NEB HHN SCH ×4 (03:24→21:20)
[2020-11-13] MEDS: DILTIAZEM HCL 30MG TABLET NG SCH ×3 (05:05→17:36)
[2020-11-13] MEDS: PIPERACILLIN/TAZOBACTAM 3.375 G in DEXT 5% WATER 100 ML IV SCH ×3 (05:05→17:34)
[2020-11-13] MEDS: VANCOMYCIN 750 MG PREMIX 150 ML IV SCH ×3 (05:05→21:27)
[2020-11-13] MEDS: ACETAMINOPHEN 325MG TABLET PO PRN ×2 (05:06→12:48)
[2020-11-13] MEDS: BLOOD SUGAR DIAGNOSTIC STRIP TEST SCH ×4 (07:50→20:58)
[2020-11-13 09:42] LABS: BG BASE EXCESS 8.3 mmol/L (-2.0-2.0); BG CARBOXYHEMOGLOBIN 0.5 % (0.5-1.5); BG DEOXYHEMOGLOBIN 7.3 % (0.0-5.0); BG FRACTION INSPIRED OXYGEN 90; BG HCO3 ACT 34.2 mmol/L (22.0-26.0); BG METHEMOGLOBIN 0.2 % (0.0-1.5); BG OXYGEN SATURATION 92.6 % (92.0-98.5); BG PCO2 55.3 mmHg (35.0-45.0); BG PH 7.409 (7.350-7.450); BG PO2 69.7 mmHg (75.0-100.0); BG TOTAL HEMOGLOBIN 9.6 g/dL (12.0-18.0); BG VENT MODE VENT - AC/PRVC
[2020-11-13] MEDS: ZINC SULFATE 220 MG ( 50 ) CAPSULE PO SCH (10:27)
[2020-11-13] MEDS: FAMOTIDINE 20MG TABLET PO SCH ×2 (10:27→20:58)
[2020-11-13] MEDS: ASCORBIC ACID 500 MG TABLET PO SCH ×2 (10:27→20:58)
[2020-11-13] MEDS: GUAIFENESIN/DM 600MG/30MG ER TAB 12HR PO SCH ×2 (10:27→20:58)
[2020-11-13] MEDS: INSULIN GLARGINE UD 100 UNITS/ML SYR SUBCUT SCH ×2 (10:27→21:23)
[2020-11-13] MEDS: INSULIN LISPRO 100 UNITS/ML SUBCUT SCH ×4 (10:28→20:58)
[2020-11-13] MEDS: FENTANYL CITRATE/PF 2,500 MCG in SODIUM CHLORIDE 0.9% 200 ML IV PRN (10:28)
[2020-11-13] MEDS: ASPIRIN 81MG TABLET PO SCH (10:30)
[2020-11-13] MEDS: MIDAZOLAM HCL 100 MG in DEXT 5% WATER 80 ML IV PRN (17:26)
[2020-11-13] MEDS: ENOXAPARIN 40MG/0.4ML SYR SUBCUT SCH (20:57)
[2020-11-13] MEDS: MICONAZOLE NITRATE 100MG VAG SUPP VG SCH (20:58)
[2020-11-13] MEDS: SODIUM CHLORIDE 0.9% 500 ML IV NR (21:27)
[2020-11-14] VITALS (117 sets, daily range): BP systolic 54–197; BP diastolic 18–123
[2020-11-14] MEDS: ACETAMINOPHEN 325MG TABLET PO PRN (00:31)
[2020-11-14] MEDS: PIPERACILLIN/TAZOBACTAM 3.375 G in DEXT 5% WATER 100 ML IV SCH ×5 (00:31→23:46)
[2020-11-14] MEDS: SODIUM CHLORIDE 0.9% 500 ML IV NR (02:22)
[2020-11-14] MEDS: MIDAZOLAM HCL 100 MG in DEXT 5% WATER 80 ML IV PRN (03:24)
[2020-11-14] MEDS: IPRATROPIUM/ALBUTEROL 0.5-3(2.5)MG/3ML NEB HHN SCH ×4 (03:40→21:15)
[2020-11-14 04:12] LABS: HEMOGLOBIN. 7.6 g/dL (12.0-16.0); MEAN CORPUSCULAR HEMOGLOBIN 24.9 pg (28.0-32.0); MEAN CORPUSCULAR VOLUME 81.9 fL (81.0-99.0); MEAN PLATELET VOLUME 10.3 fl (7.4-10.4); PLATELET 318 x1000/uL (130-400); RED BLOOD CELL COUNT 3.05 mill/uL (4.2-5.4); RED CELL DISTRIBUTION WIDTH 20.6 % (11.6-14.6)
[2020-11-14 04:17] LABS: CHLORIDE 102 mEq/L (98-107)
[2020-11-14 04:24] LABS: VANCOMYCIN TROUGH 19.8 ug/mL (5.0-10.0)
[2020-11-14] MEDS: DILTIAZEM HCL 30MG TABLET NG SCH ×2 (06:00)
[2020-11-14] MEDS: VANCOMYCIN 750 MG PREMIX 150 ML IV SCH (06:00)
[2020-11-14] MEDS: INSULIN LISPRO 100 UNITS/ML SUBCUT SCH ×4 (08:20→20:35)
[2020-11-14] MEDS: BLOOD SUGAR DIAGNOSTIC STRIP TEST SCH ×4 (08:30→20:35)
[2020-11-14] MEDS: PHENYLEPHRINE 100 MG in SODIUM CHLORIDE 0.9% 240 ML IV PRN (08:57)
[2020-11-14] MEDS: ASCORBIC ACID 500 MG TABLET PO SCH ×2 (09:00→20:34)
[2020-11-14 10:09] LABS: BG BASE EXCESS 4.6 mmol/L (-2.0-2.0); BG CARBOXYHEMOGLOBIN 1.4 % (0.5-1.5); BG DEOXYHEMOGLOBIN 4.3 % (0.0-5.0); BG FRACTION INSPIRED OXYGEN 90; BG HCO3 ACT 33.8 mmol/L (22.0-26.0); BG METHEMOGLOBIN 0.4 % (0.0-1.5); BG OXYGEN SATURATION 95.6 % (92.0-98.5); BG OXYHEMOGLOBIN 93.9 % (94.0-97.0); BG PCO2 69.9 mmHg (35.0-45.0); BG PH 7.302 (7.350-7.450); BG PO2 89.2 mmHg (75.0-100.0); BG SAMPLE SITE RIGHT RADIAL; BG TOTAL HEMOGLOBIN 16.2 g/dL (12.0-18.0); BG TOTAL RESPIRATORY RATE 35 b/min; BG VENT MODE VENT - AC/PRVC
[2020-11-14] MEDS: FAMOTIDINE 20MG TABLET PO SCH ×2 (10:09→20:34)
[2020-11-14] MEDS: ASPIRIN 81MG TABLET PO SCH (10:09)
[2020-11-14] MEDS: ZINC SULFATE 220 MG ( 50 ) CAPSULE PO SCH (10:09)
[2020-11-14] MEDS: GUAIFENESIN/DM 600MG/30MG ER TAB 12HR PO SCH ×2 (10:09→20:34)
[2020-11-14] MEDS: INSULIN GLARGINE UD 100 UNITS/ML SYR SUBCUT SCH ×2 (10:10→23:47)
[2020-11-14 14:34] LABS: BG BASE EXCESS 7.8 mmol/L (-2.0-2.0); BG CARBOXYHEMOGLOBIN 0.3 % (0.5-1.5); BG FRACTION INSPIRED OXYGEN 90; BG HCO3 ACT 32.8 mmol/L (22.0-26.0); BG OXYHEMOGLOBIN 97.7 % (94.0-97.0); BG PCO2 48.1 mmHg (35.0-45.0); BG PH 7.451 (7.350-7.450); BG PO2 116.9 mmHg (75.0-100.0); BG SAMPLE SITE RIGHT RADIAL; BG TOTAL HEMOGLOBIN 9.5 g/dL (12.0-18.0); BG TOTAL RESPIRATORY RATE 41 b/min; BG VENT MODE AC/PRVC
[2020-11-14 15:36] LABS: PLATELET ESTIMATE NORMAL
[2020-11-14] MEDS: MIDAZOLAM HCL 100 MG in SODIUM CHLORIDE 0.9% 80 ML IV PRN (17:03)
[2020-11-14] MEDS: VANCOMYCIN 1,250 MG in SODIUM CHLORIDE 0.9% 250 ML IV SCH (17:41)
[2020-11-14] MEDS: ENOXAPARIN 40MG/0.4ML SYR SUBCUT SCH (20:34)
[2020-11-14] MEDS: MICONAZOLE NITRATE 100MG VAG SUPP VG SCH (20:35)
[2020-11-15] VITALS (94 sets, daily range): BP systolic 83–166; BP diastolic 37–104
[2020-11-15] MEDS: MIDAZOLAM HCL 100 MG in SODIUM CHLORIDE 0.9% 80 ML IV PRN ×2 (02:37→14:00)
[2020-11-15] MEDS: IPRATROPIUM/ALBUTEROL 0.5-3(2.5)MG/3ML NEB HHN SCH ×4 (03:49→21:23)
[2020-11-15] MEDS: ACETAMINOPHEN 325MG TABLET PO PRN (04:52)
[2020-11-15] MEDS: PIPERACILLIN/TAZOBACTAM 3.375 G in DEXT 5% WATER 100 ML IV SCH ×4 (05:15→23:34)
[2020-11-15] MEDS: VANCOMYCIN 1,250 MG in SODIUM CHLORIDE 0.9% 250 ML IV SCH ×2 (05:54→18:18)
[2020-11-15 06:30] LABS: HEMATOCRIT. 25.8 % (36.0-48.0); HEMOGLOBIN. 7.9 g/dL (12.0-16.0); MEAN CORPUSCULAR HEMOGLOBIN 24.7 pg (28.0-32.0); MEAN CORPUSCULAR VOLUME 81.1 fL (81.0-99.0); MEAN PLATELET VOLUME 10.6 fl (7.4-10.4); PLATELET 392 x1000/uL (130-400); RED BLOOD CELL COUNT 3.18 mill/uL (4.2-5.4); RED CELL DISTRIBUTION WIDTH 19.8 % (11.6-14.6)
[2020-11-15 06:48] LABS: CHLORIDE 101 mEq/L (98-107)
[2020-11-15] MEDS: ASPIRIN 81MG TABLET PO SCH (09:46)
[2020-11-15] MEDS: FAMOTIDINE 20MG TABLET PO SCH ×2 (09:46→20:13)
[2020-11-15] MEDS: GUAIFENESIN/DM 600MG/30MG ER TAB 12HR PO SCH ×2 (09:46→20:13)
[2020-11-15] MEDS: ASCORBIC ACID 500 MG TABLET PO SCH ×2 (09:46→20:13)
[2020-11-15] MEDS: ZINC SULFATE 220 MG ( 50 ) CAPSULE PO SCH (09:47)
[2020-11-15] MEDS: INSULIN GLARGINE UD 100 UNITS/ML SYR SUBCUT SCH ×2 (10:31→23:34)
[2020-11-15] MEDS: INSULIN LISPRO 100 UNITS/ML SUBCUT SCH ×2 (12:00→18:00)
[2020-11-15] MEDS: BLOOD SUGAR DIAGNOSTIC STRIP TEST SCH ×2 (12:23→18:18)
[2020-11-15 12:28] LABS: PLATELET ESTIMATE NORMAL
[2020-11-15 13:15] LABS: BG BASE EXCESS 8.1 mmol/L (-2.0-2.0); BG CARBOXYHEMOGLOBIN 0.3 % (0.5-1.5); BG DEOXYHEMOGLOBIN 2.1 % (0.0-5.0); BG HCO3 ACT 34.7 mmol/L (22.0-26.0); BG METHEMOGLOBIN 0.1 % (0.0-1.5); BG OXYGEN SATURATION 97.9 % (92.0-98.5); BG OXYHEMOGLOBIN 97.5 % (94.0-97.0); BG PCO2 62.2 mmHg (35.0-45.0); BG PH 7.364 (7.350-7.450); BG PO2 118.1 mmHg (75.0-100.0); BG SAMPLE SITE LEFT RADIAL; BG TOTAL HEMOGLOBIN 8.4 g/dL (12.0-18.0); BG TOTAL RESPIRATORY RATE 41 b/min
[2020-11-15] MEDS ORDERED: FLUCONAZOLE 100MG TABLET PO SCH (13:30)
[2020-11-15] MEDS ORDERED: FLUCONAZOLE 100MG TABLET GT SCH (14:10)
[2020-11-15] MEDS ORDERED: MAGNESIUM 2 G PREMIX 50 ML IV SCH (15:00)
[2020-11-15] MEDS: FENTANYL CITRATE/PF 2,500 MCG in SODIUM CHLORIDE 0.9% 200 ML IV PRN ×2 (15:27→23:37)
[2020-11-15] MEDS: THEOPHYLLINE ANHYDROUS 80 MG/15 ML 120ML PO SCH ×2 (18:00→23:35)
[2020-11-15] MEDS: MICONAZOLE NITRATE 100MG VAG SUPP VG SCH (20:12)
[2020-11-15] MEDS: ENOXAPARIN 40MG/0.4ML SYR SUBCUT SCH (20:12)
[2020-11-16] VITALS (83 sets, daily range): BP systolic 93–159; BP diastolic 43–113
[2020-11-16] MEDS: IPRATROPIUM/ALBUTEROL 0.5-3(2.5)MG/3ML NEB HHN SCH ×4 (03:55→21:40)
[2020-11-16] MEDS: THEOPHYLLINE ANHYDROUS 80 MG/15 ML 120ML PO SCH ×4 (05:47→23:14)
[2020-11-16] MEDS: INSULIN LISPRO 100 UNITS/ML SUBCUT SCH ×5 (05:47→23:40)
[2020-11-16] MEDS: VANCOMYCIN 1,250 MG in SODIUM CHLORIDE 0.9% 250 ML IV SCH (05:47)
[2020-11-16] MEDS: BLOOD SUGAR DIAGNOSTIC STRIP TEST SCH ×5 (05:48→23:14)
[2020-11-16] MEDS: MIDAZOLAM HCL 100 MG in DEXT 5% WATER 80 ML IV PRN ×2 (06:04→16:27)
[2020-11-16 06:15] LABS: CHLORIDE 103 mEq/L (98-107); HEMATOCRIT. 25.8 % (36.0-48.0); HEMOGLOBIN. 7.9 g/dL (12.0-16.0); MEAN CORPUSCULAR HEMOGLOBIN 24.8 pg (28.0-32.0); MEAN CORPUSCULAR VOLUME 81.2 fL (81.0-99.0); MEAN PLATELET VOLUME 10.4 fl (7.4-10.4); PLATELET 368 x1000/uL (130-400); RED BLOOD CELL COUNT 3.17 mill/uL (4.2-5.4); RED CELL DISTRIBUTION WIDTH 20.7 % (11.6-14.6)
[2020-11-16] MEDS: PIPERACILLIN/TAZOBACTAM 3.375 G in DEXT 5% WATER 100 ML IV SCH ×4 (07:48→23:14)
[2020-11-16] MEDS: ASPIRIN 81MG TABLET PO SCH (09:00)
[2020-11-16] MEDS: PHENYLEPHRINE 100 MG in SODIUM CHLORIDE 0.9% 240 ML IV PRN (09:13)
[2020-11-16] MEDS: ZINC SULFATE 220 MG ( 50 ) CAPSULE PO SCH (09:40)
[2020-11-16] MEDS: FAMOTIDINE 20MG TABLET PO SCH ×2 (09:40→22:08)
[2020-11-16] MEDS: GUAIFENESIN/DM 600MG/30MG ER TAB 12HR PO SCH ×2 (09:40→22:07)
[2020-11-16] MEDS: ASCORBIC ACID 500 MG TABLET PO SCH ×2 (09:40→22:08)
[2020-11-16 09:48] LABS: BG BASE EXCESS 6.8 mmol/L (-2.0-2.0); BG CARBOXYHEMOGLOBIN 0.7 % (0.5-1.5); BG DEOXYHEMOGLOBIN 1.8 % (0.0-5.0); BG FRACTION INSPIRED OXYGEN 100; BG HCO3 ACT 32.1 mmol/L (22.0-26.0); BG METHEMOGLOBIN 0.1 % (0.0-1.5); BG OXYGEN SATURATION 98.2 % (92.0-98.5); BG OXYHEMOGLOBIN 97.4 % (94.0-97.0); BG PCO2 50.2 mmHg (35.0-45.0); BG PH 7.423 (7.350-7.450); BG SAMPLE SITE RIGHT RADIAL; BG TOTAL HEMOGLOBIN 8.3 g/dL (12.0-18.0); BG TOTAL RESPIRATORY RATE 43 b/min; BG VENT MODE VENT - AC/PRVC
[2020-11-16] MEDS: INSULIN GLARGINE UD 100 UNITS/ML SYR SUBCUT SCH ×2 (11:09→22:28)
[2020-11-16 12:56] LABS: PROTHROMBIN TIME 10.7 sec (9.6-11.0)
[2020-11-16] MEDS: FENTANYL CITRATE/PF 2,500 MCG in SODIUM CHLORIDE 0.9% 200 ML IV PRN (13:09)
[2020-11-16 13:51] LABS: PLATELET ESTIMATE NORMAL
[2020-11-16] MEDS: FLUCONAZOLE 200MG/5ML ORAL SYR GT SCH (17:36)
[2020-11-16] MEDS: ACYCLOVIR 200MG CAPSULE PO SCH ×2 (17:36→22:08)
[2020-11-16] MEDS: ENOXAPARIN 40MG/0.4ML SYR SUBCUT SCH (21:00)
[2020-11-16] MEDS: MICONAZOLE NITRATE 100MG VAG SUPP VG SCH (22:11)
[2020-11-17] VITALS (88 sets, daily range): BP systolic 57–170; BP diastolic 41–99
[2020-11-17] MEDS: MIDAZOLAM HCL 100 MG in DEXT 5% WATER 80 ML IV PRN ×3 (01:05→18:57)
[2020-11-17] MEDS: IPRATROPIUM/ALBUTEROL 0.5-3(2.5)MG/3ML NEB HHN SCH ×4 (03:11→21:14)
[2020-11-17] MEDS: FENTANYL CITRATE/PF 2,500 MCG in SODIUM CHLORIDE 0.9% 200 ML IV PRN ×3 (03:29→22:33)
[2020-11-17] MEDS ORDERED: DILTIAZEM HCL 5MG/ML 5ML VIAL IV ONE (03:30)
[2020-11-17] MEDS: AMIODARONE HCL 900 MG in DEXT 5% WATER 482 ML IV PRN (03:30)
[2020-11-17] MEDS ORDERED: DILTIAZEM HCL 5MG/ML 5ML VIAL IV SCH (04:00)
[2020-11-17] MEDS: THEOPHYLLINE ANHYDROUS 80 MG/15 ML 120ML PO SCH ×2 (05:33→11:45)
[2020-11-17] MEDS: ACYCLOVIR 200MG CAPSULE PO SCH ×5 (05:34→21:55)
[2020-11-17] MEDS: DILTIAZEM HCL 30MG TABLET PO SCH ×4 (05:34→23:12)
[2020-11-17] MEDS: PIPERACILLIN/TAZOBACTAM 3.375 G in DEXT 5% WATER 100 ML IV SCH ×4 (05:35→23:11)
[2020-11-17] MEDS: INSULIN LISPRO 100 UNITS/ML SUBCUT SCH ×4 (05:37→23:16)
[2020-11-17] MEDS: BLOOD SUGAR DIAGNOSTIC STRIP TEST SCH ×4 (05:37→23:12)
[2020-11-17] MEDS: ASCORBIC ACID 500 MG TABLET PO SCH ×2 (08:11→21:55)
[2020-11-17] MEDS: GUAIFENESIN/DM 600MG/30MG ER TAB 12HR PO SCH ×2 (08:11→21:55)
[2020-11-17] MEDS: ZINC SULFATE 220 MG ( 50 ) CAPSULE PO SCH (08:11)
[2020-11-17] MEDS: FAMOTIDINE 20MG TABLET PO SCH ×2 (08:11→21:55)
[2020-11-17] MEDS: ACETAMINOPHEN 325MG TABLET PO PRN ×2 (08:12→22:00)
[2020-11-17] MEDS: ASPIRIN 81MG TABLET PO SCH (08:13)
[2020-11-17 09:09] LABS: BG BASE EXCESS 8.7 mmol/L (-2.0-2.0); BG CARBOXYHEMOGLOBIN 0.9 % (0.5-1.5); BG DEOXYHEMOGLOBIN 12.7 % (0.0-5.0); BG FRACTION INSPIRED OXYGEN 100; BG HCO3 ACT 35.2 mmol/L (22.0-26.0); BG METHEMOGLOBIN 0.2 % (0.0-1.5); BG OXYGEN SATURATION 87.2 % (92.0-98.5); BG OXYHEMOGLOBIN 86.2 % (94.0-97.0); BG PCO2 61.4 mmHg (35.0-45.0); BG PH 7.376 (7.350-7.450); BG SAMPLE SITE RIGHT RADIAL; BG TOTAL HEMOGLOBIN 8.6 g/dL (12.0-18.0); BG VENT MODE VENT - AC/PRVC
[2020-11-17 09:14] LABS: HEMATOCRIT. 24.6 % (36.0-48.0); HEMOGLOBIN. 7.6 g/dL (12.0-16.0); MEAN CORPUSCULAR HEMOGLOBIN 25.1 pg (28.0-32.0); MEAN CORPUSCULAR VOLUME 81.4 fL (81.0-99.0); MEAN PLATELET VOLUME 9.2 fl (7.4-10.4); PLATELET 407 x1000/uL (130-400); RED BLOOD CELL COUNT 3.02 mill/uL (4.2-5.4); RED CELL DISTRIBUTION WIDTH 19.7 % (11.6-14.6)
[2020-11-17 09:36] LABS: CHLORIDE 98 mEq/L (98-107)
[2020-11-17] MEDS: INSULIN GLARGINE UD 100 UNITS/ML SYR SUBCUT SCH ×2 (11:04→21:59)
[2020-11-17] MEDS: FLUCONAZOLE 200MG/5ML ORAL SYR GT SCH (14:09)
[2020-11-17 18:07] LABS: PLATELET ESTIMATE INCREASED
[2020-11-17] MEDS: MICONAZOLE NITRATE 100MG VAG SUPP VG SCH (22:57)
[2020-11-17] MEDS: PHENYLEPHRINE 100 MG in SODIUM CHLORIDE 0.9% 240 ML IV PRN (23:00)
[2020-11-17] MEDS: DEXTROSE 50% WATER 50ML SYRINGE IV PRN (23:16)
[2020-11-18] VITALS (93 sets, daily range): BP systolic 42–135; BP diastolic 20–92
[2020-11-18] MEDS: IPRATROPIUM/ALBUTEROL 0.5-3(2.5)MG/3ML NEB HHN SCH ×3 (03:38→21:21)
[2020-11-18 05:59] LABS: HEMATOCRIT. 26.9 % (36.0-48.0); HEMOGLOBIN. 8.2 g/dL (12.0-16.0); MEAN CORPUSCULAR HEMOGLOBIN 25.5 pg (28.0-32.0); MEAN CORPUSCULAR VOLUME 83.9 fL (81.0-99.0); MEAN PLATELET VOLUME 9.6 fl (7.4-10.4); PLATELET 527 x1000/uL (130-400)
[2020-11-18 06:00] LABS: CHLORIDE 95 mEq/L (98-107)
[2020-11-18] MEDS: DILTIAZEM HCL 30MG TABLET PO SCH ×2 (06:00→12:00)
[2020-11-18] MEDS: INSULIN LISPRO 100 UNITS/ML SUBCUT SCH ×3 (06:00→18:00)
[2020-11-18] MEDS: PIPERACILLIN/TAZOBACTAM 3.375 G in DEXT 5% WATER 100 ML IV SCH ×3 (06:12→19:16)
[2020-11-18] MEDS: BLOOD SUGAR DIAGNOSTIC STRIP TEST SCH ×3 (06:12→18:50)
[2020-11-18] MEDS: ACYCLOVIR 200MG CAPSULE PO SCH ×5 (06:13→21:55)
[2020-11-18] MEDS: DEXTROSE 50% WATER 50ML SYRINGE IV PRN ×3 (06:13→12:12)
[2020-11-18] MEDS: MIDAZOLAM HCL 100 MG in DEXT 5% WATER 80 ML IV PRN ×2 (06:40→19:19)
[2020-11-18] MEDS: IPRATROPIUM/ALBUTEROL 0.5-3(2.5)MG/3ML NEB HHN PRN (08:48)
[2020-11-18] MEDS: ASPIRIN 81MG TABLET PO SCH (09:00)
[2020-11-18] MEDS ORDERED: SODIUM POLYSTYRENE SULFONATE 15 G/60 ML BOT PO NR (09:00)
[2020-11-18] MEDS: INSULIN GLARGINE UD 100 UNITS/ML SYR SUBCUT SCH ×2 (09:39→22:00)
[2020-11-18] MEDS: FENTANYL CITRATE/PF 2,500 MCG in SODIUM CHLORIDE 0.9% 200 ML IV PRN (09:41)
[2020-11-18] MEDS: ZINC SULFATE 220 MG ( 50 ) CAPSULE PO SCH (10:04)
[2020-11-18] MEDS: GUAIFENESIN/DM 600MG/30MG ER TAB 12HR PO SCH ×2 (10:04→21:53)
[2020-11-18] MEDS: ASCORBIC ACID 500 MG TABLET PO SCH ×2 (10:05→21:52)
[2020-11-18] MEDS: FAMOTIDINE 20MG TABLET PO SCH ×2 (10:05→21:52)
[2020-11-18] MEDS: FLUCONAZOLE 200MG/5ML ORAL SYR GT SCH (10:05)
[2020-11-18 10:22] LABS: BG CARBOXYHEMOGLOBIN 0.3 % (0.5-1.5); BG DEOXYHEMOGLOBIN 10.7 % (0.0-5.0); BG FRACTION INSPIRED OXYGEN 100; BG HCO3 ACT 26.8 mmol/L (22.0-26.0); BG METHEMOGLOBIN 0.1 % (0.0-1.5); BG OXYGEN SATURATION 89.3 % (92.0-98.5); BG OXYHEMOGLOBIN 88.9 % (94.0-97.0); BG PCO2 54.9 mmHg (35.0-45.0); BG PH 7.306 (7.350-7.450); BG PO2 64.9 mmHg (75.0-100.0); BG SAMPLE SITE RIGHT RADIAL; BG TOTAL HEMOGLOBIN 9.4 g/dL (12.0-18.0); BG TOTAL RESPIRATORY RATE 43 b/min; BG VENT MODE VENT - AC/PRVC
[2020-11-18] MEDS: DEXT 5%/0.9% NACL 1,000 ML IV SCH (10:37)
[2020-11-18] MEDS: PHENYLEPHRINE 100 MG in SODIUM CHLORIDE 0.9% 240 ML IV PRN ×3 (10:51→21:51)
[2020-11-18] MEDS ORDERED: NOREPINEPHRINE 32 MG in DEXT 5% WATER 218 ML IV PRN (13:00)
[2020-11-18 14:37] LABS: NUCLEATED RED BLOOD CELLS 5 /100 WBC; PLATELET ESTIMATE INCREASED
[2020-11-18] MEDS: ACETAMINOPHEN 325MG TABLET PO PRN (14:42)
[2020-11-18] MEDS: METHYLPREDNISOLONE SOD SUCC 40 MG/ML VIAL IV SCH ×2 (16:00→22:28)
[2020-11-18] MEDS: VASOPRESSIN 20 UNIT in SODIUM CHLORIDE 0.9% 99 ML IV PRN ×2 (16:00→22:32)
[2020-11-18] MEDS ORDERED: SODIUM CHLORIDE 0.9% 250 ML IV ONE (21:00)
[2020-11-18] MEDS: MICONAZOLE NITRATE 100MG VAG SUPP VG SCH (21:00)
[2020-11-18] MEDS ORDERED: MIDAZOLAM HCL 100 MG in SODIUM CHLORIDE 0.9% 80 ML IV PRN (21:00)
[2020-11-19] MEDS: INSULIN LISPRO 100 UNITS/ML SUBCUT SCH
[2020-11-19] MEDS: DEXTROSE 50% WATER 50ML SYRINGE IV PRN (00:05)
[2020-11-19] MEDS: BLOOD SUGAR DIAGNOSTIC STRIP TEST SCH (00:14)
[2020-11-19] MEDS: PIPERACILLIN/TAZOBACTAM 3.375 G in DEXT 5% WATER 100 ML IV SCH (00:24)
[2020-11-19] MEDS: IPRATROPIUM/ALBUTEROL 0.5-3(2.5)MG/3ML NEB HHN SCH (01:08)
[2020-11-19] MEDS ORDERED: EPINEPHRINE 10 MG in SODIUM CHLORIDE 0.9% 240 ML IV PRN (01:15)
[2020-11-19 02:32] LABS: BG BASE EXCESS -27.5 mmol/L (-2.0-2.0); BG CARBOXYHEMOGLOBIN 0.3 % (0.5-1.5); BG DEOXYHEMOGLOBIN 26.7 % (0.0-5.0); BG FRACTION INSPIRED OXYGEN 100; BG HCO3 ACT 6.8 mmol/L (22.0-26.0); BG METHEMOGLOBIN 0.6 % (0.0-1.5); BG OXYGEN SATURATION 73.1 % (92.0-98.5); BG OXYHEMOGLOBIN 72.4 % (94.0-97.0); BG PCO2 53.6 mmHg (35.0-45.0); BG PH 6.724 (7.350-7.450); BG PO2 70.7 mmHg (75.0-100.0); BG SAMPLE SITE RIGHT RADIAL; BG TOTAL HEMOGLOBIN 8.2 g/dL (12.0-18.0); BG VENT MODE PPRVC/AC
[2020-11-19 02:35] VITALS: BP 101/67
[2020-11-19] MEDS ORDERED: SODIUM BICARBONATE 8.4% 1 MEQ/ML 50ML SYR IV NR (02:45)
[2020-11-19] MEDS ORDERED: SODIUM BICARBONATE 8.4% 1 MEQ/ML 50ML SYR IV ONE ×2 (02:46→04:00)
[2020-11-19] MEDS: DEXT 5%/0.9% NACL 1,000 ML IV SCH (02:52)
[2020-11-19] MEDS ORDERED: SODIUM BICARBONATE 100 MEQ in SODIUM CHLORIDE 0.45% 1,000 ML IV SCH (03:30)
[2020-11-19] MEDS ORDERED: SODIUM BICARBONATE 100 MEQ in DEXTROSE 5% WATER 1,000 ML IV SCH (04:00)
[2020-11-19] MEDS ORDERED: ATROPINE SULFATE 1MG/10ML SYR ONE (04:00)
[2020-11-19] MEDS ORDERED: CALCIUM CHLORIDE 1GM/10ML SYR IV ONE (04:00)
[2020-11-19] MEDS ORDERED: DEXTROSE 50% WATER 50ML SYRINGE IV ONE (04:00)
[2020-11-19] MEDS ORDERED: EPINEPHRINE 0.1MG/ML (1:10,000) 10ML SYR ONE (04:00)
== END 2020-11-19 06:00 | disposition expired | DRG 720 ==
LOC: ER 14:15 → MICUSO 19:41 → EDBEDREQ 19:43 → EDBEDREQTM 19:43 → 8WST 10-29 09:06 → CVICU 11-06 16:12
PROVIDERS: ADMIT Internal Medicine; ATTEND Internal Medicine
PROC: 5A09457 Assistance with Respiratory Ventilation, 24-96 Consecutive Hours, Continuous Positive Airway Pressure (ICD-10-PCS; 2020-11-03)
PROC: 5A1955Z Respiratory Ventilation, Greater than 96 Consecutive Hours (ICD-10-PCS; principal; 2020-11-06)
PROC: 0BH17EZ Insertion of Endotracheal Airway into Trachea, Via Natural or Artificial Opening (ICD-10-PCS; 2020-11-06)
PROC: 05HY33Z Insertion of Infusion Device into Upper Vein, Percutaneous Approach (ICD-10-PCS; 2020-11-11)
PROC: B54MZZA Ultrasonography of Right Upper Extremity Veins, Guidance (ICD-10-PCS; 2020-11-11)
PROC: 0W9930Z Drainage of Right Pleural Cavity with Drainage Device, Percutaneous Approach (ICD-10-PCS; 2020-11-18)
PROC: 5A12012 Performance of Cardiac Output, Single, Manual (ICD-10-PCS; 2020-11-19)
DX: A41.89 Other specified sepsis (principal); U07.1 COVID-19; J96.01 Acute respiratory failure with hypoxia; E44.0 Moderate protein-calorie malnutrition; E87.1 Hypo-osmolality and hyponatremia; I10 Essential (primary) hypertension; N39.0 Urinary tract infection, site not specified; T38.0X5A Adverse effect of glucocorticoids and synthetic analogues, initial encounter; I47.1 Supraventricular tachycardia; E87.2 Acidosis; J12.82 Pneumonia due to coronavirus disease 2019; J96.02 Acute respiratory failure with hypercapnia; D64.9 Anemia, unspecified; R74.01 Elevation of levels of liver transaminase levels; F41.9 Anxiety disorder, unspecified; R65.21 Severe sepsis with septic shock; B00.9 Herpesviral infection, unspecified; Z68.35 Body mass index [BMI] 35.0-35.9, adult; Z99.11 Dependence on respirator [ventilator] status; Y92.89 Other specified places as the place of occurrence of the external cause; I46.9 Cardiac arrest, cause unspecified; J93.0 Spontaneous tension pneumothorax; E11.65 Type 2 diabetes mellitus with hyperglycemia
CPT/HCPCS: 31500; 36415; 36600; 71045; 76937; 80048; 80053; 80076; 80202; 81003; 82375; 82550; 82553; 82607; 82728; 82746; 82805; 82962; 83036; 83540; 83550; 83605; 83615; 83735; 83880; 84100; 84145; 84443; 84478; 84484; 85025; 85379; 86140; 87070; 87106; 87804; 90732; 93005; 93970; 94002; 94003; 94640; 94660; 99285; A6261; C1725; C1893; J0282; J0456; J0461; J0696; J1100; J1160; J1650; J1815; J1885; J1940; J2060; J2250; J2270; J2370; J2405; J2543; J2704; J2920; J3010; J3370; J3475; J3490; J7040; J7042; J7050; J7060; J7070; U0003; A4315